=== PATIENT | female | born 1995 | race Caucasian/White ===

== ENCOUNTER 2021-10-13 12:06 | Outpatient (CLI) | payer BC, SELFPAY ==
--- NOTE | ~2021-10-13 | US_ITS ---
EXAMINATION: US OB follow up DATE: 10/13/2021 12:55 INDICATION: with inconclusive viability and gestational age TECHNIQUE: Real-time ultrasound of the pelvis was performed. The interpreting radiologist was not pre sent for the study. COMPARISON: None. FINDINGS: There is a single living fetus in vertex presentation. The placenta is fundal. cardia c activity and movement are noted. heart rate is 164 beats per minute (bpm). The amniotic fluid index is subjectively normal. The following biometric data were obtained: Biparietal diameter (BPD): 3.7 cm; head circumference (HC): 14.1 cm; abdominal circumference (AC): 11 .2 cm; femur length (FL): 2.1 cm. These measurements are concordant. Estimated weight is 168 g +/- 25 g. As single measurements, these parameters are each equal to the following estimated gestational ages w ith ranges of +/- 2 standard deviations: BPD: 17 weeks 2 days +/- 1 weeks 1 days. HC: 17 weeks 3 days +/- 1 weeks 1 days. AC: 17 weeks 0 days +/- 1 weeks 5 days. FL: 16 weeks 2 days +/- 1 weeks 3 days. estimated gestational age based solely on measurements from this exam is 17 weeks 0 days +/- 1 weeks 1 days. IMPRESSION: 1. Single living fetus in vertex presentation. 2. estimated gestational age based solely on measurements from this exam is 17 weeks 0 days +/- 1 weeks 1 days and an estimated delivery date of 03/23/2022. Reviewed, dictated and finalized at location A. PAPER TESTER IMPRESSION: 1. Single living fetus in vertex presentation. 2. estimated gestational age based solely on measurements from this exam is 17 weeks 0 days +/- 1 weeks 1 days and an estimated delivery date of 2.
== END 2021-10-13 12:07 | disposition home or self-care (01) ==
LOC: ANHIMG 12:10
PROVIDERS: Visit Provider Student in an Organized Health Care Education/Training Program
DX: O36.80X0 Pregnancy with inconclusive fetal viability, not applicable or unspecified (principal); Z3A.17 17 weeks gestation of pregnancy
CPT/HCPCS: 76816

== ENCOUNTER 2022-01-13 15:35 | Outpatient (CLI) | payer BC, SELFPAY ==
[2022-01-13 16:36] LABS: Basophils Absolute Auto 0.1 K/mm3 (0.0-0.1); Basophils Percent Auto 0.6 % (0.2-1.2); Eosinophils Absolute Auto 0.1 K/mm3 (0-0.3); Eosinophils Percent Auto 0.7 % (0-4.4); Hematocrit 39.4 % (37.0-47.0); Hemoglobin 13.6 g/dL (12.0-15.0); Immature Granulocyte Absolute 0.07 K/mm3 (0.00-0.031); Immature Granulocyte Percent A 0.6 % (0-0.5); Mean Corpuscular HGB Conc 34.5 g/dl (32-36); Mean Corpuscular Hemoglobin 30.4 pg (26-34); Mean Corpuscular Volume 88.1 fl (80-100); Mean Platelet Volume 10.8 fl (7.4-10.4); Monocytes Absolute Auto 0.7 K/mm3 (0.1-0.6); Monocytes Percent Auto 6.1 % (2.6-8.5); Neutrophils Absolute Auto 8.6 K/mm3 (1.3-6.7); Platelet Count Result 245 k/mm3 (150-375); Red Blood Count 4.47 M/mm3 (4.2-5.4); Red Cell Distribution Width 13.7 % (11.5-14.5); White Blood Count 10.8 K/mm3 (4.5-10.0)
[2022-01-13 16:48] LABS: Alanine Aminotransferase 32 U/L (6-35); Albumin Level 4.2 g/dL (3.5-5.1); Alkaline Phosphatase 198 U/L (38-126); Anion Gap 10 mmol/L (8-16); Aspartate Amino Transferase 30 U/L (14-36); Bilirubin,Total 0.7 mg/dL (0.2-1.3); Blood Urea Nitrogen 7 mg/dL (7-17); Calcium 8.9 mg/dL (8.4-10.2); Carbon Dioxide 21 mmol/L (22-30); Chloride 106 mmol/L (98-107); Estimated Glomerular Filt Rate > 60; Glucose 74 mg/dL (65-110); Potassium 3.6 mmol/L (3.4-5.0); Sodium 137 mmol/L (137-145)
[2022-01-13 17:40] LABS: Vitamin D 25 Hydroxy 25.5 ng/mL
[2022-01-13 17:49] LABS: Hepatitis B Surface Antigen Negative (Negative)
[2022-01-13 17:51] LABS: Hepatitis C Virus Antibody Negative (Negative)
[2022-01-13 21:06] LABS: Hemoglobin A1C 4.8 % (<5.7)
[2022-01-13 21:35] LABS: Rubella IgG Antibody > 110.0 IU/ML
[2022-01-14 15:20] LABS: Rapid Plasma Reagin Non-Reactive (NonReactive)
[2022-01-16 16:23] LABS: Varicella IgG Antibody <135.00 Index (>=165.00)
[2022-01-19 11:28] LABS: Hematocrit 41.2 % (35.0-45.0); Hemoglobin 13.5 g/dL (11.7-15.5); MCH 29.5 pg (27.0-33.0); MCV 90.2 fL (80.0-100.0); RDW 13.1 % (11.0-15.0); Red Blood Cell Count 4.57 Mill/uL (3.80-5.10)
[2022-01-27 13:18] LABS: CF Result NEGATIVE (NEGATIVE)
== END 2022-01-13 15:36 | disposition home or self-care (01) ==
PROVIDERS: Student in an Organized Health Care Education/Training Program; Visit Provider Obstetrics & Gynecology
DX: Z34.90 Encounter for supervision of normal pregnancy, unspecified, unspecified trimester (principal)
CPT/HCPCS: 36415; 80053; 81220; 81243; 82306; 83021; 83036; 84443; 85025; 86592; 86762; 86787; 86803; 86850; 86900; 86901; 87340

== ENCOUNTER 2022-02-10 08:00 | Outpatient (RCR) | payer BC, SELFPAY ==
[2022-02-09 09:04] LABS: HIV 1/2 Ab P24 Ag Result Negative (Negative)
[2022-02-09 09:06] LABS: Free T4 Free Thyroxine 1.29 ng/mL (0.78-2.19)
[2022-02-09 11:14] LABS: Glucose 1 Hour PP 50gm Dose 160 mg/dL
[2022-02-10 10:29] LABS: Rapid Plasma Reagin Non-Reactive (NonReactive)
[2022-02-10] MEDS: RHO(D) IMMUNE GLOBULIN 300 MCG/2 ML SYRINGE IM (14:32)
== END 2022-05-10 23:59 | disposition home or self-care (01) ==
LOC: ANHLAB 08:00
PROVIDERS: Visit Provider Student in an Organized Health Care Education/Training Program
DX: Z11.4 Encounter for screening for human immunodeficiency virus [HIV] (principal); Z29.13 Encounter for prophylactic Rho(D) immune globulin; O36.0190 Maternal care for anti-D [Rh] antibodies, unspecified trimester, not applicable or unspecified; Z3A.00 Weeks of gestation of pregnancy not specified
CPT/HCPCS: 36415; 82947; 84439; 84443; 85461; 86592; 86703; 90384; 96372; G0432; J2790

== ENCOUNTER 2025-04-22 14:09 | Emergency (ER) | payer BC, SELFPAY ==
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
--- OUTSIDE RECORDS SUMMARY | 2025-04-22 14:12 | XMS_ITS | Clinical Summary ---
Author Organization [facility] Address [address] [facility] [address] [place] [address] Phone Care Team Providers Care Director Clinical Information Services Name Role Phone Wendie Alexander NP Primary Care Provider Allergies No known active allergies Medications ketorolac (TORADOL) 10 mg tablet Take 1 tablet (10 mg total) by mouth every 6 (six) hours as needed for pain 20 tablet 09/08/2023 Active Active Problems Problem Noted Date Diagnosed Date Opioid abuse 02/28/2019 Anxiety 02/28/2019 Social History Tobacco Use Types Packs/Day Years Used Date Smoking Tobacco: Never Assessed Personal Safety Answer Date Recorded Have you ever been in or are you currently in a harmful physical or emotional relationship or is someone making you feel afraid or unsafe? Denies 09/07/2023 Comments No Sex and Gender Information Value Date Recorded Sex Assigned at Not on file Legal Sex Female 8:50 PM CIVIL DRAFTER Gender Identity Not on file Sexual Orientation Not on file Obstetrics History Last Filed Vital Signs Vital Sign Reading Time Taken Comments Blood Pressure 153/88 09/08/2023 3:00 AM CIVIL DRAFTER Pulse 94 09/08/2023 3:00 AM CIVIL DRAFTER Temperature 38 C (100.4 F) 09/07/2023 7:27 PM CIVIL DRAFTER Respiratory Rate 19 09/08/2023 3:00 AM CIVIL DRAFTER Oxygen Saturation 100% 09/08/2023 3:00 AM CIVIL DRAFTER Inhaled Oxygen Concentration - - Weight 46.5 kg (102 lb 8.2 oz) 09/07/2023 7:27 P M CIVIL DRAFTER Height 149.9 cm (4' 11) 09/07/2023 7:27 PM CIVIL DRAFTER Body Mass Index 20.71 09/07/2023 7:27 PM CIVIL DRAFTER Plan of Treatment Health Maintenance Due Date Last Done Comments Cervical Cancer Screening 1995 Depression Screening 1995 Hepatitis C Screening 1995 Regular Well Visit/Exam 18-64 2013 DTaP/Tdap/Td Vaccine (7 - Td or Tdap) 03/13/2018 03/13/2008, 04/04/2000, 04/09/1998, Additional history exists Influenza Vaccine (#1) 2025 6, 07/31/2013, 07/11/2012, Additional history exists Hepatitis B Screening Completed 04/09/1998 , 04/26/1996, 1995 HPV Vaccines Completed 10/11/2008, 1010/2007, 03/13/2008 Varicella Vaccines Completed 05/07/2010, 02/17/2006 Pneumococcal vaccine <65 Aged Out No longer eligible based on patient's age to complete this topic Insurance [facility] PLAN [facility] PLAN Care Teams Director Clinical Information Services Relationship Specialty Start Date End Date Wendie Alexander NP [address] [place] [address] PCP - General 04/11/20
--- OUTSIDE RECORDS SUMMARY | 2025-04-22 14:12 | XMS_ITS | Encounter Summary ---
Author Organization [facility] Address Critical access hospital[address] [place] [address] Care Team Providers Care Copra Sampler Name Role Phone Wendie Alexander [facility] Primary Care Provider [phone] Encounter Details Date Type Department Care Team (Late st Contact Info) Description 03/10/2022 Hospital Follow-up Call [facility] [place] [address] Leonora Rojas RN Social History Tobacco Use Types Packs/Day Years Used Date Smoking Tobacco: Every Day Electronic Cigarettes Smokeless Tobacco: Never Comments No Sex and Gender Information Value Date Recorded Sex Assigned at Not on file Legal Sex Female 1:38 AM DOOR BUILDER Gender Identity Not on file Sexual Orientation Not on file COVID-19 Exposure Response Date Recorded In the last 10 days, have yo u been in contact with someone who was confirmed or suspected to have Coronavirus/COVID-19? No / Unsure 03/03/2022 8:15 AM CDT documented as of this encounter Functional Status * RETIRED Are you deaf or do you have serious difficulty hearing Answer Date of Assessment Author Status No 03/03/2022 12:27 PM CDT Acti ve * RETIRED Are you blind or do you have serious difficulty seeing, even when wearing glasses? Answer Date of Assessment Author Status No 03/03/2022 12:27 PM CDT Acti ve * Do you have serious difficulty walking or climbing stairs? Answer Date of Assessment Author Status No 03/03/2022 12:27 PM CDT Dominga Edmonds RN Active * Do you have difficulty dressing or bathing? Answer Date of Assessment Author Status No 03/03/2022 12:27 PM Dominga Crane RN Active * Because of a physical, mental, or emotional condition, do you have difficulty doing errands alone such as visiting a doctor's office or shopping? Answer Date of Assessment Author Status No 03/03/2022 12:27 PM Dominga Crane RN Active documented as of this encounter Mental Status * Because of a physical, mental, or emotional condition, do you have serious difficulty concentrating, remembering, or making decisions? Answer Entry Date Author Status No 03/03/2022 12:27 PM Dominga Crane RN Active documented in this encounter Plan of Treatment Not on file documented as of this encounter Visit Diagnoses Not on filedocumented in this encounter Care Teams Copra Sampler Relationship Specialty Start Date End Date Wendie Alexander FNP [address] [place] [address] PCP - General NURSE PRACTITIONER 06/26/19 documented as of this encounter
--- OUTSIDE RECORDS SUMMARY | 2025-04-22 14:12 | XMS_ITS | Clinical Summary ---
Author Organization [facility] Address [facility] [place] [address] Care Team Providers Care Data Architect Manager Name Role Phone Wendie Alexander ART APPRAISER Primary Care Provider [phone] Allergies No known active allergies Medications ferrous sulfate EC 324 (65 Fe) MG tablet Take 1 tablet (324 mg total) by mouth every other day. 30 tablet 03/03/2022 Active Active Problems Problem Noted Date Diagnosed Date ([facility]) 03/03/2022 Social History Tobacco Use Types Packs/Day Years Used Date Smoking Tobacco: Every Day Electronic Cigarettes Smokeless Tobacco: Never Comments No Sex and Gender Information Value Date Recorded Sex Assigned at Not on file Legal Sex Female 1:38 AM STRIPER Gender Identity Not on file Sexual Orientation Not on file Last Filed Vital Signs Vital Sign Reading Time Taken Comments Blood Pressure 113/59 03/03/2022 8:10 PM CDT Pulse 68 03/03/2022 8:10 PM CDT Temperature 37.3 C (99.1 F) 03/03/2022 8:10 PM CDT Respiratory Rate 16 03/03/2022 8:10 PM CDT Oxygen Saturation 100% 03/03/2022 8:10 PM CDT Inhaled Oxygen Concentration - - Weight 56.7 kg (125 lb) 03/03/2022 11:15 AM CDT Height 149.9 cm (4' 11) 03/03/2022 11:15 AM CDT Body Mass Index 25.25 03/03/2022 11:15 AM CDT Plan of Treatment Health Maintenance Due Date Last Done Comments Cervical Cancer Screening Pap Smear (Age 30 to 64) Every 3 Years 1995 Annual Physical 1998 Hepatitis C 2013 Pneumococcal Vaccine: Pediatrics (0 to 5 Years) and At-Risk Patients (6 to 49 Years) (1 of 2 - PCV) 2014 DTaP, Tdap and Td Vaccines (7 - Td or Tdap) 03/13/2018 03/13/2008, 04/04/2000, 04/09/1998, Additional history exists Cervical Cancer Screening Pap with HPV Testing (Age 30 to 64) Every 5 Years 2025 Cervical Cancer Screening with HPV 2025 COVID-19 Vaccine ( season) 2025 04/10/2021, 02/03/2021, 01/13/2021 Hepatitis B Vaccines Completed 04/09/1998, 04/26/1996, 1995 HPV Vaccines Completed 10/11/2008, 10/2007, 03/13/2008 Meningococcal Vaccine Completed 09/21/2011, 010 Meningococcal B Vaccine Aged Out No l onger eligible based on patient's age to complete this topic RSV Immunizations Under 20 Months Aged Out No longer eligible based on patient's age to complete this topic Insurance [facility] [address] C/O PROVIDER SERVICES [place] [id number] Care Teams Data Architect Manager Relationship Specialty Start Date End Date Wendie Alexander FNP [address] [place] [id number] PCP - General NURSE PRACTITIONER 06/26/19
--- OUTSIDE RECORDS SUMMARY | 2025-04-22 14:12 | XMS_ITS | Clinical Summary ---
Author Organization [facility] Address [address] [place] [address] Care Team Providers Care Customer Associate Name Role Phone Unavailable Primary Care Provider Unavailabl e Social History Tobacco Use Types Packs/Day Years Used Date Smoking Tobacco: Never Assessed Comments Unknown Sex and Gender Information Value Date Recorded Sex Assigned at Not on file Legal Sex Female 1:02 PM COMPUTERIZED TABLE CUTTER Gender Identity Not on file Sexual Orientation Not on file Plan of Treatment Health Maintenance Due Date Last Done Comments Hepatitis C Virus (HCV) Screening 1995 TdaP Immunization 1995 Hepatitis B Immunization (1 of 3 - 19+ 3-dose series) 2014 Pap Smear 2016 Human Papillomavirus (HPV) Immunization (1 - 3-dose SCDM series) 2022 SARS-COV-2 Immunization ( season) 2024 Cervical Cancer Screening (CCS) 2025 HPV/Cotest 2025 Influenza Immunization (#1) 2025 Respiratory Syncytial Virus (RSV) Immunization (Adult) (1 - 1-dose 75+ series) 2070 Meningococcal Immunization (ACWY) Aged Out No longer eligible based on patient's age to complete this topic Pneumococcal Immunization Combined Aged Out No longer eligible based on patient's age to complete this topic Rotavirus Immunization Aged Out No lo nger eligible based on patient's age to complete this topic
--- OUTSIDE RECORDS SUMMARY | 2025-04-22 14:12 | XMS_ITS | Clinical Summary ---
Author Organization [facility] Address [address] [place] [phone] Phone Care Team Providers Care Back Closer Name Role Phone Unavailable Primary Care Provider Unavailabl e Social History Tobacco Use Types Packs/Day Years Used Date Smoking Tobacco: Never Assessed Comments Unknown Sex and Gender Information Value Date Recorded Sex Assigned at Not on file Legal Sex Female 7:34 AM CDT Gender Identity Not on file Sexual Orientation Not on file Plan of Treatment Health Maintenance Due Date Last Done Comments DTAP/TDAP/TD VACCINES (1 - Tdap) 2014 HEPATITIS B VACCINES (1 of 3 - 19+ 3-dose series) 04/2014 HPV/Cotest (21-29) 2016 HPV VACCINES (1 - 3-dose SCDM series) 2022 INFLUENZA VACCINE (#1) 2025 CERVICAL CANCER SCREENING 2025 HPV/Cotest (30-65) 2025 PAP SMEAR 2025 Insurance [facility] BLUE ACCESS/TRUE BLUE PPO
[2025-04-22 14:21] VITALS: BP 113/68; PULSE 86; RESP 18; TEMP 36.7; O2SAT 99
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
== END 2025-04-22 15:16 | disposition home or self-care (01) ==
PROVIDERS: Emergency Provider Registered Nurse; Referring Provider Emergency Medicine
DX: S62.316A Displaced fracture of base of fifth metacarpal bone, right hand, initial encounter for closed fracture (principal); V00.838A Other accident with motorized mobility scooter, initial encounter
CPT/HCPCS: 29125; 73130; 99214; A4565; G0463